=== PATIENT | female | born 1960 | race Native Hawaiian/Other Pacific Islander ===

== ENCOUNTER 2022-03-24 17:28 | Observation (INO) | payer OTHER ==
[~2022-03-24] VITALS: Ht 170.2 cm; Wt 77.3 kg
[2022-03-24 17:41] VITALS: BP 120/79; TEMP 96.5
[2022-03-24 18:22] LABS: PLATELET COUNT 206 K/uL (152-353)
[2022-03-24 18:31] LABS: POTASSIUM 4.1 mmol/L (3.6-5.2); SODIUM 141 mmol/L (136-145)
[2022-03-24 18:41] LABS: PARTIAL THROMBOPLASTIN TIME 27.3 SECONDS (24.5-33.6)
[2022-03-24 20:00] VITALS: BP 123/53; TEMP 97.4
[2022-03-24 20:18] VITALS: BP 123/53; TEMP 97.4; Ht 170.2 cm; Wt 77.3 kg
[2022-03-25 04:00] VITALS: BP 132/65; TEMP 97.5
[2022-03-25 08:06] VITALS: BP 151/52; TEMP 98.2
[2022-03-25 12:15] VITALS: BP 149/74; TEMP 97.9
[2022-03-25] MEDS ORDERED: ALPR0.5T24 PO (13:18)
[2022-03-25] MEDS ORDERED: DULOXETINE HCL30 MG PO (13:19)
[2022-03-25] MEDS ORDERED: SERT100T PO (13:19)
[2022-03-25] MEDS ORDERED: BUT/APAP/CA3 PO (13:20)
[2022-03-25 15:53] VITALS: BP 115/36; TEMP 98
[2022-03-25 20:00] VITALS: BP 125/55; TEMP 98.3
[2022-03-26] VITALS: BP 158/69; TEMP 98.2
[2022-03-26 04:00] VITALS: BP 133/52; TEMP 98.3
[2022-03-26 08:20] VITALS: BP 145/60; TEMP 98.1
[2022-03-26 11:48] VITALS: BP 134/59; TEMP 98.1
[2022-03-26 16:00] VITALS: BP 129/51; BP 133/59; TEMP 98.3
[2022-03-26 20:00] VITALS: BP 149/66; TEMP 97.9
[2022-03-27] VITALS: BP 137/62; TEMP 98.2
[2022-03-27 04:00] VITALS: BP 115/45; TEMP 98
[2022-03-27 05:44] LABS: PLATELET COUNT 251 K/uL (152-353)
[2022-03-27 06:00] LABS: POTASSIUM 3.7 mmol/L (3.6-5.2)
[2022-03-27 08:00] VITALS: BP 142/56; TEMP 98.3
[2022-03-27 12:00] VITALS: BP 116/59; TEMP 97.8
== END 2022-03-27 15:09 | disposition home or self-care (01) ==
LOC: ED 17:28 → EDBD 18:45 → MED/SURG 18:45
PROVIDERS: ADMIT Hospitalist; ATTEND Internal Medicine
DX: Q79.69 Other Ehlers-Danlos syndromes (principal); H53.2 Diplopia; Z86.73 Personal history of transient ischemic attack (TIA), and cerebral infarction without residual deficits; G43.909 Migraine, unspecified, not intractable, without status migrainosus; G62.89 Other specified polyneuropathies
CPT/HCPCS: 36415; 80053; 82550; 83880; 84484; 85027; 85610; 85730; 87635; 93005; 94760; 99220; 99284; A9576; G0378; J1650; J2060; J2270; J2405; U0003

== ENCOUNTER 2022-04-26 15:28 | Emergency (ER) | payer OTHER ==
[~2022-04-26] VITALS: Ht 170.2 cm; Wt 77.1 kg
[~2022-04-26 15:28] MED LIST: ALPR0.5T24 PO; BUT/APAP/CA3 PO; DULOXETINE HCL30 MG PO; SERT100T PO
[2022-04-26 15:37] VITALS: TEMP 97.5
[2022-04-26 16:12] LABS: PLATELET COUNT 195 K/uL (152-353)
[2022-04-26 16:19] LABS: POTASSIUM 3.2 mmol/L (3.6-5.2)
[2022-04-26 17:00] VITALS: BP 141/66
== END 2022-04-26 17:15 | disposition home or self-care (01) ==
LOC: ED 15:28
PROVIDERS: Emergency Medicine Emergency Medical Services
DX: S00.83XA Contusion of other part of head, initial encounter (principal); R29.6 Repeated falls; W18.39XA Other fall on same level, initial encounter; Y92.89 Other specified places as the place of occurrence of the external cause
CPT/HCPCS: 80048; 81000; 85027; 87077; 87086; 87088; 87186; 93005; 99283

== ENCOUNTER 2022-05-25 13:07 | Observation (INO) | payer OTHER ==
[~2022-05-25] VITALS: Ht 167.6 cm; Wt 71.7 kg
[2022-05-25 13:11] VITALS: BP 165/82; TEMP 96.9
[2022-05-25 14:00] VITALS: BP 155/84
[2022-05-25 14:19] LABS: POTASSIUM 3.5 mmol/L (3.6-5.2)
[2022-05-25 14:33] LABS: PLATELET COUNT 114 K/uL (152-353)
[2022-05-25 14:51] LABS: PARTIAL THROMBOPLASTIN TIME 26.4 SECONDS (24.5-33.6)
[2022-05-25 14:57] VITALS: BP 155/74
[2022-05-25 17:08] VITALS: BP 137/82; TEMP 97.3; Ht 167.6 cm; Wt 71.7 kg
[2022-05-25] MEDS ORDERED: ALPR0.5T24 PO (19:53)
[2022-05-25] MEDS ORDERED: K-TAB20 MEQ PO (19:54)
[2022-05-25] MEDS ORDERED: DULOXETINE HCL30 MG PO (19:55)
[2022-05-25 19:59] VITALS: BP 168/82; TEMP 98.2
[2022-05-26 01:00] VITALS: BP 158/68; TEMP 98.7
[2022-05-26 05:00] VITALS: BP 139/69; TEMP 98.4
[2022-05-26 05:23] LABS: PLATELET COUNT 285 K/uL (152-353)
[2022-05-26 05:35] LABS: POTASSIUM 4.2 mmol/L (3.6-5.2)
[2022-05-26 09:11] VITALS: BP 151/72; TEMP 98.8
== END 2022-05-26 10:56 | disposition home or self-care (01) ==
LOC: ED 13:07 → MED/SURG 16:06
PROVIDERS: ADMIT Family Medicine; ATTEND Internal Medicine
DX: R53.1 Weakness (principal); M25.551 Pain in right hip; M25.571 Pain in right ankle and joints of right foot; R26.89 Other abnormalities of gait and mobility; G25.2 Other specified forms of tremor; Q79.60 Ehlers-Danlos syndrome, unspecified; G62.89 Other specified polyneuropathies; F41.8 Other specified anxiety disorders; R51.9 Headache, unspecified; W18.39XA Other fall on same level, initial encounter; Y92.098 Other place in other non-institutional residence as the place of occurrence of the external cause
CPT/HCPCS: 36416; 80053; 80320; 82550; 83735; 84100; 84484; 85027; 85610; 85730; 86140; 87635; 93005; 96361; 96365; 96367; 99220; 99284; G0378; U0003